=== PATIENT | female | born 1995 | race Caucasian/White ===

== ENCOUNTER 2021-01-16 01:34 | Emergency (ER) | payer SELFPAY ==
[~2021-01-16] VITALS: Ht 160 cm; Wt 72.6 kg
--- NOTE | 2021-01-16 01:34 | NUR ---
PT BIB [facility], PREBOOK. TAKEN TO CHAIR C
--- NOTE | 2021-01-16 01:36 | NUR ---
Dr. Rose examining patient.
[2021-01-16 01:37] VITALS: BP 138/85
--- NOTE | 2021-01-16 01:38 | NUR ---
PT MOVED TO ER BED 10
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
--- NOTE | 2021-01-16 02:02 | NUR ---
LAB AT BEDSIDE
[2021-01-16 02:10] LABS: BASOPHILS # (AUTO) 0.1 K/uL (0.00-0.22); BASOPHILS % (AUTO) 0.7 % (0.0-2.0); EOSINOPHILS % (AUTO) 0.2 % (0.0-4.0); HEMATOCRIT 41.8 % (36-48); HEMOGLOBIN 14.3 g/dL (12.0-16.0); LYMPHOCYTES # (AUTO) 1.9 K/uL (2.5-16.5); LYMPHOCYTES % (AUTO) 23.7 % (20.5-51.1); MEAN CORPUSCULAR HEMOGLOBIN 32 pg (27-31); MEAN CORPUSCULAR HGB CONC 34 g/dL (33-37); MEAN CORPUSCULAR VOLUME 94.6 fL (80-94); MONOCYTES # (AUTO) 0.7 K/uL (0.8-1.0); MONOCYTES % (AUTO) 8.7 % (1.7-9.3); NEUTROPHILS # (AUTO) 5.4 K/uL (1.8-7.7); NEUTROPHILS % (AUTO) 66.7 % (42.2-75.2); PLATELET COUNT (AUTO) 317 K/uL (140-450); RED BLOOD CELL COUNT(AUTO) 4.41 MIL/uL (4.20-5.40); RED CELL DISTRIBUTION WIDTH 12.9 % (11.6-13.7); WHITE BLOOD COUNT (AUTO) 8.1 K/uL (4.8-10.8)
[2021-01-16 02:26] LABS: ALBUMIN 4.4 g/dL (3.4-5.0); ANION GAP 13.8 (8-16); CARBON DIOXIDE 27.8 mmol/L (21-32); CREATININE 0.8 mg/dL (0.6-1.3); POTASSIUM 4.6 mmol/L (3.5-5.1); TOTAL BILIRUBIN 0.3 mg/dL (0.0-1.0)
--- NOTE | 2021-01-16 02:55 | NUR ---
PATIENT TAKEN TO CT VIA WHEELCHAIR.
--- NOTE | 2021-01-16 03:06 | NUR ---
PT RETURN FROM CT
[2021-01-16] MEDS ORDERED: HYDROcodone/APAP 5/325 MG 1 TAB TAB PO ONE (04:00)
--- NOTE | 2021-01-16 04:06 | NUR ---
MD AT BEDSIDE REASSESSING PATIENT.
--- NOTE | 2021-01-16 04:11 | NUR ---
PER [facility] DAY #65421 D/T TRANSFER, NO LONGER ELIGIBLE FOR PRE-BOOK.
--- NOTE | 2021-01-16 04:36 | NUR ---
MIREILLE SWAB COLLECTED AND HANDED TO OPERATIONS ASSISTANT
[2021-01-16] MEDS ORDERED: MORPHINE SULFATE 4 MG/ML SYR IVP ONE (04:40)
--- NOTE | 2021-01-16 04:40 | NUR ---
Patient to be transferred to [facility]. Is being transferred due to HIGHER LEVEL OF CARE. Receiving facility has accepting physician and available space. ER physician has signed transfer form. Patient or responsible democrat has agreed to transfer and signed form. Patient belongings inventoried and will be sent with patient. Copy of nursing notes, lab reports, EKG, Physicians Orders and X-rays to be sent with patient. Report called to JORGE A MOREL ([phone]) at receiving facility. [facility] ambulance service has been called for transfer. ETA is 10-15 MINUTES.
--- NOTE | 2021-01-16 05:30 | NUR ---
[facility] TRANSPORT AT BEDSIDE
--- NOTE | 2021-01-16 05:33 | NUR ---
TRANSFER REPORT GIVEN TO [facility]. JENNY
[2021-01-16 05:39] VITALS: BP 114/76
== END 2021-01-16 05:39 | disposition designated cancer center or children's hospital (05) ==
LOC: MED 01:34
DX: S32.008A Other fracture of unspecified lumbar vertebra, initial encounter for closed fracture (principal); V49.9XXA Car occupant (driver) (passenger) injured in unspecified traffic accident, initial encounter; Y93.89 Activity, other specified; Y92.89 Other specified places as the place of occurrence of the external cause; Y99.8 Other external cause status; Z02.89 Encounter for other administrative examinations; Z20.822 Contact with and (suspected) exposure to COVID-19
CPT/HCPCS: 36415; 71260; 74177; 80053; 84703; 85025; 87426; 96374; 99285; J2270; Q9967